=== PATIENT | male | born 1960 | race Caucasian/White ===

== ENCOUNTER → 2017-03-24 | Outpatient (CLI) | payer OTHER ==
[~2017-03-24] MED LIST: BENTYL 20 MG TA20 M1 PO; LASIX 40 MG TAB40 M2 PO; LIPITOR10 MG PO; LOSARTAN POTAS100 MG PO; MOBIC15 MG PO; NORCO 10-325 T1 EACH PO; NORCO 5-325 TA1 EACH PO; ONDANSETRON HCL4 M2 PO; PRADAXA150 MG PO
--- NOTE | ~2017-03-24 | 2DMMODE ---
[facility] [address] [place] [address] 2 D/M-MODE ECHOCARDIOGRAM Name: PIEDAD MAGANA Room #: REG [facility]#: [id number] Admission: 03/24/17 Attend Phys: Reji Hernandez MD Discharge: Date of : 56 Date of Service: 03/24/17 1507 Report #: [id number] THIS REPORT FOR: //name// APPROVED REPORT Study performed: 03/24/2017 14:27:04 EXAM: Comprehensive 2D, Doppler, and color-flow Echocardiogram Patient Location: Out-Patient Status: routine BSA: 2.64 HR: 72 bpm BP: 115/78 mmHg Rhythm: NSR Other Information Study Quality: Adequate Indications Pulmonary hypertension. Hx: PE 2D Dimensions RVDd: 39.70 mm LVEF(%): 59.37 (>50%) IVSd: 11.36 (7-11mm) LVOT Diam: 23.88 (18-24mm) LVDd: 55.08 mm PWd: 11.00 (7-11mm) Ascending Ao: 33.30 (22-36mm) LVDs: 37.52 (25-40mm) Aortic Root: 37.65 mm Hobson's LVEF: 59.37 % Volumes Left Atrial Volume (Systole) Single Plane 4CH: 62.58 mL Single Plane 2CH: 38.63 mL LA ESV Index: 20.00 mL/m2 Aortic Valve AoV Peak Lavelle.: 1.58 m/s AO Peak Gr.: 10.01 mmHg LVOT Max P.27 mmHg LVOT Max V: 1.15 m/s MARICHUY Vmax: 3.25 cm2 Mitral Valve E/A Ratio: 0.9 MV Decel. Time: 256.71 ms [facility] [email or web address] [place] [address] 2 D/M-MODE ECHOCARDIOGRAM Name: PIEDAD MAGANA Room #: REG [facility]#: [id number] Admission: 03/24/17 Attend Phys: Reji Hernandez MD Discharge: Date of : 56 Date of Service: 03/24/17 1507 Report #: [id number] MV E Max Lavelle.: 0.62 m/s MV A Lavelle.: 0.72 m/s MV PHT: 74.45 ms IVRT: 62.28 ms Pulmonary Valve PV Peak Lavelle.: 1.19 m/s PV Peak Gr.: 5.69 mmHg Pulmonary Vein P Vein S: 0.58 m/s P Vein A: 0.42 m/s P Vein D: 0.46 m/s P Vein A Dur.: 107.3 msec P Vein S/D Ratio: 1.26 Left Ventricle The left ventricle is normal size. There is normal LV segmental wall motion. There is normal left ventricular wall thickness. Left ventricular systolic function is normal. LVEF is 55-60%. Mild diastolic dysfunction is present (impaired relaxation pattern). Right Ventricle The right ventricle is normal size. The right ventricular systolic function is normal. Atria The left atrium size is normal. The right atrium size is normal. Aortic Valve Aortic valve is grossly normal in structure. Trace aortic regurgitation. There is no aortic valvular stenosis. Mitral Valve The mitral valve is normal in structure. There is no mitral valve regurgitation noted. Tricuspid Valve The tricuspid valve is normal in structure. There is no tricuspid valve regurgitation noted. Unable to assess PA pressure. Pulmonic Valve The pulmonary valve is normal in structure. Trace pulmonic regurgitation. Great Vessels The aortic root measures at the upper limits of normal. The [facility] [address] [place] [address] 2 D/M-MODE ECHOCARDIOGRAM Name: PIEDAD MAGANA Room #: REG [facility]#: [id number] Admission: 03/24/17 Attend Phys: Reji Hernandez MD Discharge: Date of : 56 Date of Service: 03/24/17 1507 Report #: [id number] aorta is normal in size. The inferior vena cava is not well visualized. Pericardium There is no pericardial effusion. <Conclusion> The left ventricle is normal size. LVEF is 55-60%. Aortic valve is grossly normal in structure. Trace aortic regurgitation. The mitral valve is normal in structure. There is no mitral valve regurgitation noted. The tricuspid valve is normal in structure. There is no tricuspid valve regurgitation noted. Unable to assess PA pressure. The pulmonary valve is normal in structure. Trace pulmonic regurgitation. There is no pericardial effusion. <ELECTRONICALLY SIGNED> By: Homero Coyle MD 03/24/17 1507 1507 1507 Homero Coyle MD /INF
== END ==
LOC: CV 12:17
DX: I27.29 Other secondary pulmonary hypertension (principal); I51.9 Heart disease, unspecified; G47.8 Other sleep disorders; Z85.820 Personal history of malignant melanoma of skin

== ENCOUNTER → 2017-04-06 | Outpatient (CLI) | payer OTHER | LOC: CAT 07:28 | DX: Z13.6 Encounter for screening for cardiovascular disorders (principal) ==

== ENCOUNTER → 2018-03-02 | Outpatient (CLI) | payer OTHER ==
[2018-03-02 13:01] LABS: SGOT 42 U/L (15-37); SGPT 52 U/L (30-65)
== END ==
LOC: RAD 12:12
PROVIDERS: Physician Assistant
DX: Z85.820 Personal history of malignant melanoma of skin (principal)